=== PATIENT | female | born 1975 | race Caucasian/White ===

== ENCOUNTER 2018-02-08 07:27 | Inpatient (IN) | payer BC ==
--- NOTE | 2018-01-21 10:53 | HP ---
AMENDED REPORT NOW INCLUDES COSIGNER DESIGNATION CC: Bhavani Rae MD; Channing Mills MD; Jp Tsai MD * ADMISSION HISTORY AND PHYSICAL: DATE OF ADMISSION: 02/08/18 DATE OF HISTORY AND PHYSICAL: 01/17/18 ATTENDING SURGEON: Uma Singh MD* (GLORIA Jerome, dictating). CHIEF COMPLAINT: Right breast cancer. HISTORY OF PRESENT ILLNESS: This is a generally healthy 42-year-old female who recently had a sense that she might have breast cancer. Her only symptom was some discomfort in both axillae, which has since subsided. She had not noticed any change in either breast. She proceeded to have a mammogram and ultrasound both done at the [facility] in [place] on 01/07/18. Her last mammogram was apparently 2 years prior. There were some architectural changes in the right breast on the mammogram that prompted an ultrasound, which showed a hypoechoic mass in the 2 o'clock position of the right breast measuring up to 1.3 cm. A biopsy was performed that day showing invasive ductal carcinoma, which was ER and MO positive and HER-2/stefany receptor negative. The patient had had a prior biopsy of the right breast for benign disease in 1999. Her family history is notable for her mother having been treated for breast cancer at age 48. She is still alive and well. The patient also has a paternal grandmother diagnosed with breast cancer at around age 75. No additional family history known of breast, ovarian, colon, or pancreatic cancers. The patient was seen in the office by Dr. Singh on 01/10/18, at which time her studies were reviewed and she was examined. 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 No masses in the left breast. Skin and nipples otherwise normal. No palpable cervical, supraclavicular, or axillary lymphadenopathy. Also of note, the patient states that she did undergo an MRI through the [facility] and that study showed no additional lesions and no apparent lymph node involvement. I do not have the results of that study immediately available. The patient has had blood work drawn for genetic markers, which is still pending. Dr. Singh has reviewed with her the indications for surgery, the risks, benefits, and alternatives and I have described to her the expected perioperative course. She has not yet met with Dr. Mills, though is interested in reconstruction. She also has a pending appointment with Dr. Rae on 01/21/18. Per her scheduled booking, she is scheduled for bilateral mastectomies with right sentinel lymph node biopsy. However, I believe at this point she is considering an alternate procedure based on pending genetic testing as well as pending consultations with [facility] and [facility]. PAST MEDICAL HISTORY: ADHD. No other significant active medical problems. She does have some insomnia. PAST SURGICAL HISTORY: Previous surgeries include x2 and abdominoplasty. CURRENT MEDICATIONS: 1. Methylphenidate extended release 36 mg q.a.m. 2. Methylphenidate 5 mg q.p.m. She also takes the following supplements: 1. Vitamin D. 2. Probiotic. 3. Fish oil. 4. Melatonin 10 mg q.h.s. DRUG ALLERGIES: SULFA (blistering). FAMILY HISTORY: Negative for anesthesia problems, bleeding or clotting disorders. SOCIAL HISTORY: The patient is and has 3 children. 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 She denies use of tobacco. Drinks on average 1 alcoholic drink per day and denies any other recreational drug use. REVIEW OF SYSTEMS: General: No recent constitutional symptoms or acute illnesses. Weight has been stable. HEENT: No problems reported. Cardiovascular: No chest pain, palpitations, history of heart murmur. Respiratory: No history of asthma, chronic cough, or shortness of breath. GI: No problems reported. : No problems reported. 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 Her last pelvic exam and Pap smear were approximately 8 years ago. 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 I encouraged her to see if that could be rescheduled for a time prior to her surgery on 02/08/18. Endocrine: No diabetes or thyroid dysfunction. Remainder of review of systems is negative. PHYSICAL EXAMINATION GENERAL: Well-nourished, well-developed female, in no acute distress. VITAL SIGNS: Height 5 feet 8 inches, weight 160 pounds. Blood pressure 118/78 , pulse 90, respirations 18. HEENT: Pupils are equal and round, reactive. EOMs intact. No conjunctival pallor. Oropharynx: Mucous membranes are moist. Teeth in good repair. No intraoral lesions. NECK: No lymphadenopathy in the cervical or supraclavicular regions. No palpable thyromegaly or masses. LUNGS: Clear to auscultation. No wheezes. HEART: Regular rate and rhythm. No murmur noted. BREASTS: As per Dr. Singh's exam, not repeated today. No axillary lymphadenopathy per Dr. Singh's exam. ABDOMEN: Soft, nontender to palpation. No palpable masses or organomegaly. There is a well-healed low transverse incision from prior abdominoplasty and the umbilicus was re-sited as part of that procedure. GENITALIA: Not done. RECTAL: Not done. BACK: No spinous process or CVA tenderness. EXTREMITIES: No edema. NEUROLOGICAL: Grossly intact. SKIN: Warm and dry. No suspicious rashes or lesions noted. IMPRESSION: Right breast cancer. PLAN: Bilateral mastectomies with right sentinel lymph node biopsy. GLORIA JEROME [id number]/[facility] #: [id number] Addendum: After discussion with Dr. Rae, she will have bilateral mastectomies and bilateral sentinel lymph node biopsies. ANDRADE
[~2018-02-08 07:27] MED LIST: Buffered Lidocaine 0.9% SYRIN* 5 ML/SYR SYRINGE INTRADERM ONE
--- OUTSIDE RECORDS SUMMARY | 2018-02-08 07:31 | XMS REPORT ---
:1975 External Reference #:[id number] Author Organization [facility] Address [address] [place] [address] Phone [phone] Care Team Providers Name Role Phone Jp Tsai MD Care Team Information Md Physician Dermatologist Unavailable Jp Tsai MD Primary Care Physician Unavailable Payers Type Date Identification Numbers Payment Provider Subscriber Commercial Policy Number: [id number] BC/BS Of [employer] Name: BC/BS [address] [address] PayID: [id number] [place] [address] Problems Date Description Provider Status Onset: 12/06/2006 Attention deficit hyperactivity Jp Tsai M.D. Active disorder Onset: 08/29/2017 Candidal vulvovaginitis Heath Romero M.D. Active Family History Date Family Member(s) Problem(s) Comments General father, sisters - attention-deficit/hyperactivity disorder; mother, grandmothers - breast cancer Mother Breast Cancer Number of Children 3; set of twins born 01/14/09; infant born 04/03/10 Social History Type Date Description Comments Occupation [employer] Cigarette Use Nonsmoker Smoking Patient has never smoked Daily Caffeine Consumes on average 1 cup of coffee per day Exercise Type/Frequency Does not exercise currently Current Allergies, Adverse Reactions, Alerts Date Description Reaction Status Severity Comments 12/13/2000 Sulfa Drugs active Medications Medication Date Status Form Strength Qnty SIG Indications Ordering Provider Vivotif 10/31 Active Capsules 4caps take one Z23 Vonda DR tablet by Hermes, mouth every [employer] other day for a total of 4 doses Atovaquone-Progu 10/31 Active Tablets 62.5-25mg 20tab take one Z23 Vonda Gamez nikhil HCL s tablet daily Hermes, 2 days [employer] before trip, for duration of trip and for 7 days after return Methylphenidate 07/08 Active Tablets 5mg 90tab 1 tab once a s day as Marybeth, directed [employer] code b Concerta 07/08 Active Tablets 36mg 90tab 1 by mouth F90.1 ER s once a day Marybeth, in the [facility] morning code b Diflucan 08/29 Hx Tablets 150mg 2tabs 1 by mouth Heath JYobani /2017 times 1 day, Nick, - august repeat M.D. 10/31 in 5- Fluconazole 07/17 Hx Tablets 150mg 1tabs 1 by mouth x 1 Bette, - Afnp-C 07/18 Amoxicillin 05/23 Hx Capsules 500mg 20cap 1 by mouth J02.9 s twice a day Marybeth, - x 10d [employer] 07/17 Fluconazole 07/10 Hx Tablets 150mg 2tabs take 1 tab today, august Marybeth, - repeat in 5 [employer] 07/17 to 7 days Nystatin-Triamci 07/10 Hx Cream 311373-7. 30gm aply to B37.3 Tamia 1Unit/GM- affected Marybeth, - % area 3 to 4 [employer] 07/17 times a day /2017 until clear Metronidazole 07/10 Hx Gel 0.75% 45gm 1 N76.0 applicatorfu Marybeth, - l at hs for [employer] 07/17 5 Malarone 10/11 Hx Tablets 250-100mg 30tab 1 by mouth Z71Page Smith s once a day Lindsey, - start 2 days [employer] 07/10 prior to travel, continue 2 days following return Vivotif 10/11 Hx Capsules 4caps [address] hines daily Lindsey, - on alternate [employer] (1,3,5,7); course to be completed one week prior to travel/expos ure Ciprofloxacin 02/11 Hx Tablets 250mg 6tabs 1 po bid Jp Thomas. Franklin Tsai M.D. 04/07 Azithromycin 08/20 Hx Tablets 250mg 6tabs take 2 786.2 Sarah tablets by Lindsey, - mouth today [employer] 02/11 then take tablet daily for next 4 days Azithromycin 01/05 Hx Tablets 250mg 6tabs take 2 786.2 Tamia tablets by Marybeth, - mouth today [employer] 06/12 then take tablet daily for next 4 days Robitussin A-C 12/21 Hx 5Floz 1-2 tsp Heath J. q4hrs prn Franklin Romero cough M.DYobani 01/05 Cipro 05/31 Hx Tablets 250mg 6tabs 1 po bid Jp A. Farnklin Tsai M.D. 06/03 Amoxicillin 04/28 Hx Tablets 500mg 30tab 1 tid x 10 381.01 s days Riki - Shobha-C 05/08 Triamcinalone 05/16 Hx 0.5% 30gm apply to Quiros A. Acetonide affected Yi, - area bid-tid M.DYobani 04/28 prn Note 03/10 Hx patient Jp A needs to be Quin, - out of work M.D. 04/28 until 05/07 Bactroban 12/21 Hx Cream 2% 20gm apply to Margaret /2008 affected [facility], - area bid x Afnp-C 12/31 10 days Triamcinalone 12/21 Hx 0.5% 30gm apply to Margaret Acetonide /2008 affected [facility], - area bid-tid Afnp-C 03/10 prn /2008 Doxycycline 02/20 Hx Capsules 100mg 14cap 1 po bid Heath JYobani s Franklin Romero M.D. 11/27 Clindamycin 02/20 Hx Capsules 300mg 42cap 1 po tid x Jp A. s 10 days Franklin Tsai M.D. 03/06 Mentax 09/20 Hx Cream 1% 30g Apply Once 110.9 Daily X 2 Riki - WKS Only Afnp-C 12/06 Nizoral 09/07 Hx Cream 2% 30uni Use bid Heath Brown Franklin Carmen M.D. 12/06 Diflucan 09/07 Hx Tablets 100mg 5tabs 1 PO Q.D. Heath Brown Franklin Romero M.D. 12/06 Keflex 07/06 Hx Capsules 500mg 20cap 1 PO bid Khalif TYobani /2005 s Franklin Carty M.D. 10/11 Strattera 11/23 Hx Capsules 60mg Samp 1 po qhs Jp AYobani /2004 Franklin Tsai M.D. 07/06 Focalin 01/29 Hx 2.5mg 60uni 1 bid Jp AYobani Franklin Montemayor M.D. 05/25 Note 01/20 Hx CBC, Jp A. /2001 Chem-12, Quin, - TSH/T4, Ebv M.DYobani 01/21 Titers, Esr, /2001 CRP - DX 780.7 Concerta 02/22 Hx 18mg 90uni [address] [facility], - Afnp-C 12/21 ninety--cod e b Concerta 12/13 Hx 36mg 30uni 1 qam Jp AYobani Franklin Montemayor M.D. 02/05 Ritalin 12/13 Hx 5mg 90uni 1 PO Jp A. Sandra Tsai - as Directed M.DYobani 01/29 Methylphenidate 02/24 Hx 10mg 24uni 2 Tabs Am; Sherry ts One Tab AT [facility], - Noon; One Afnp-C 12/13 Tab Concerta Hx 36mg 90uni 1 by mouth F90.1 Jp A. /0000 ts every Quin, - morning code M.D. 07/08 Methylphenidate Hx 5mg 180un 1 tab twice F90.1 Jp A. /0000 its a day as Quin - directed M.DYobani 07/08 code Hx Capsules Unknown /0000 - 11/16 Ortho Tri-Cyclen Hx Tablets 0.18/0.21 1 po qd Unknown Lo /0000 5/0.25 - mg-25 mcg 07/17 Immunizations CPT Code Status Date Vaccine Lot # [id number] Given 10/12/2015 Hep A Adlt Immunization [id number] Given 04/07/2013 Tdap Tetanus, W Pertussis [id number] Given 04/07/2013 Preservative free flu 3 yrs+ and older [id number] Given 02/12/2008 DO Not Use Split Influenza Virus Vaccine [id number] 36014 Given 03/15/2005 DO Not Use Split Influenza Virus Vaccine [id number] Given 12/06/2000 MMR Virus Immunization Vital Signs Date Vital Result Comment 01/21/2018 BP Systolic 124 mmHg BP Diastolic 68 mmHg Heart Rate 80 /min Body Temperature 100.3 F Respiratory Rate 16 /min Height 67.5 inches 5'7.50" Weight 165.38 lb BMI (Body Mass Index) 25.5 kg/m2 10/31/2017 BP Systolic 96 mmHg BP Diastolic 54 mmHg Heart Rate 60 /min Body Temperature 97.4 F Respiratory Rate 16 /min Height 67.5 inches 5'7.50" Weight 164.38 lb BMI (Body Mass Index) 25.4 kg/m2 08/29/2017 BP Systolic 108 mmHg BP Diastolic 72 mmHg Heart Rate 88 /min Body Temperature 99.1 F Respiratory Rate 16 /min Height 67.5 inches 5'7.50" Weight 164.50 lb BMI (Body Mass Index) 25.4 kg/m2 07/17/2017 BP Systolic 110 mmHg BP Diastolic 60 mmHg Heart Rate 72 /min Body Temperature 99.7 F Respiratory Rate 16 /min Height 67.5 inches 5'7.50" Weight 166.00 lb BMI (Body Mass Index) 25.6 kg/m2 05/23/2017 BP Systolic 104 mmHg BP Diastolic 70 mmHg Heart Rate 80 /min Body Temperature 98.7 F Respiratory Rate 16 /min Height 67.5 inches 5'7.50" Weight 163.00 lb BMI (Body Mass Index) 25.1 kg/m2 07/10/2016 BP Systolic 110 mmHg BP Diastolic 80 mmHg Heart Rate 60 /min Body Temperature 98.8 F Respiratory Rate 18 /min Height 67.5 inches 5'7.50" Weight 168.00 lb BMI (Body Mass Index) 25.9 kg/m2 10/12/2015 BP Systolic 110 mmHg BP Diastolic 70 mmHg Heart Rate 68 /min Body Temperature 98.6 F Respiratory Rate 16 /min Height 67.5 inches 5'7.50" Weight 157.00 lb BMI (Body Mass Index) 24.2 kg/m2 03/31/2015 BP Systolic 110 mmHg BP Diastolic 72 mmHg Heart Rate 68 /min Body Temperature 98.4 F Respiratory Rate 16 /min Height 67.5 inches 5'7.50" Weight 165.00 lb BMI (Body Mass Index) 25.5 kg/m2 05/25/2014 BP Systolic 112 mmHg BP Diastolic 74 mmHg Heart Rate 64 /min Body Temperature 98.2 F Respiratory Rate 16 /min Height 67.5 inches 5'7.50" Weight 163.00 lb BMI (Body Mass Index) 25.1 kg/m2 09/10/2013 BP Systolic 110 mmHg BP Diastolic 70 mmHg Heart Rate 64 /min Body Temperature 98.6 F Respiratory Rate 16 /min Height 67.5 inches 5'7.50" Weight 154.00 lb BMI (Body Mass Index) 23.8 kg/m2 04/07/2013 BP Systolic 120 mmHg BP Diastolic 70 mmHg Heart Rate 72 /min Body Temperature 98.1 F Respiratory Rate 16 /min Height 67.5 inches 5'7.50" Weight 158.00 lb BMI (Body Mass Index) 24.4 kg/m2 08/14/2012 BP Systolic 100 mmHg BP Diastolic 76 mmHg Heart Rate 66 /min Body Temperature 96.4 F Height 67.5 inches 5'7.50" Weight 151.12 lb BMI (Body Mass Index) 23.3 kg/m2 06/12/2012 BP Systolic 120 mmHg BP Diastolic 60 mmHg Heart Rate 56 /min Body Temperature 97.5 F Respiratory Rate 14 /min Height 67.5 inches 5'7.50" Weight 151.25 lb BMI (Body Mass Index) 23.3 kg/m2 01/06/2012 BP Systolic 110 mmHg BP Diastolic 78 mmHg Heart Rate 66 /min Body Temperature 98.8 F Height 67.5 inches 5'7.50" Weight 140.00 lb BMI (Body Mass Index) 21.6 kg/m2 11/28/2011 BP Systolic 102 mmHg BP Diastolic 70 mmHg Heart Rate 72 /min Height 67.5 inches 5'7.50" Weight 138.00 lb BMI (Body Mass Index) 21.3 kg/m2 12/27/2010 BP Systolic 120 mmHg BP Diastolic 76 mmHg Heart Rate 72 /min Body Temperature 98.6 F Height 67.5 inches 5'7.50" Weight 176.00 lb BMI (Body Mass Index) 27.2 kg/m2 11/16/2010 BP Systolic 100 mmHg BP Diastolic 80 mmHg Heart Rate 80 /min Body Temperature 98.1 F Height 67.5 inches 5'7.50" Weight 177.00 lb BMI (Body Mass Index) 27.3 kg/m2 04/28/2010 BP Systolic 104 mmHg BP Diastolic 74 mmHg Heart Rate 72 /min Body Temperature 98.2 F Height 67.5 inches 5'7.50" Weight 190.00 lb BMI (Body Mass Index) 29.3 kg/m2 04/22/2009 BP Systolic 106 mmHg BP Diastolic 70 mmHg Heart Rate 72 /min Height 67.5 inches 5'7.50" Weight 175.00 lb BMI (Body Mass Index) 27.0 kg/m2 03/10/2009 BP Systolic 108 mmHg BP Diastolic 72 mmHg Heart Rate 64 /min Body Temperature 98.0 F Respiratory Rate 16 /min Height 67.5 inches 5'7.50" Weight 182.00 lb BMI (Body Mass Index) 28.1 kg/m2 12/21/2008 BP Systolic 120 mmHg BP Diastolic 80 mmHg Body Temperature 98.7 F Height 67.5 inches 5'7.50" Weight 204.00 lb BMI (Body Mass Index) 31.5 kg/m2 02/12/2008 BP Systolic 100 mmHg BP Diastolic 60 mmHg Heart Rate 72 /min Height 67.5 inches 5'7.50" Weight 149.00 lb BMI (Body Mass Index) 23.0 kg/m2 07/17/2007 BP Systolic 98 mmHg BP Diastolic 60 mmHg Heart Rate 70 /min Respiratory Rate 12 /min Height 67.5 inches 5'7.50" Weight 144.00 lb BMI (Body Mass Index) 22.2 kg/m2 03/07/2007 Heart Rate 80 /min Body Temperature 98.3 F Respiratory Rate 18 /min Height 67.5 inches 5'7.50" Weight 155.00 lb BMI (Body Mass Index) 23.9 kg/m2 12/06/2006 BP Systolic 102 mmHg BP Diastolic 60 mmHg Heart Rate 60 /min Respiratory Rate 16 /min Height 67.5 inches 5'7.50" Weight 154.00 lb BMI (Body Mass Index) 23.8 kg/m2 09/20/2006 BP Systolic 120 mmHg BP Diastolic 72 mmHg Heart Rate 64 /min Body Temperature 97.6 F Height 67.5 inches 5'7.50" Weight 150.00 lb BMI (Body Mass Index) 23.1 kg/m2 09/07/2006 BP Systolic 130 mmHg BP Diastolic 80 mmHg Heart Rate 68 /min Body Temperature 99.1 F Height 67.5 inches 5'7.50" Weight 151.00 lb BMI (Body Mass Index) 23.3 kg/m2 02/23/2006 BP Systolic 110 mmHg BP Diastolic 60 mmHg Heart Rate 66 /min Height 67.5 inches 5'7.50" Weight 154.00 lb BMI (Body Mass Index) 23.8 kg/m2 10/11/2005 BP Systolic 112 mmHg BP Diastolic 62 mmHg Heart Rate 68 /min Respiratory Rate 16 /min Height 67.5 inches 5'7.50" Weight 147.00 lb BMI (Body Mass Index) 22.7 kg/m2 07/06/2005 BP Systolic 104 mmHg BP Diastolic 60 mmHg Heart Rate 76 /min Body Temperature 97.9 F Height 67.5 inches 5'7.50" 11/23/2004 BP Systolic 112 mmHg BP Diastolic 60 mmHg Heart Rate 60 /min Respiratory Rate 16 /min Height 67.5 inches 5'7.50" Weight 143.00 lb BMI (Body Mass Index) 22.1 kg/m2 12/07/2003 BP Systolic 110 mmHg BP Diastolic 70 mmHg Heart Rate 72 /min Height 67.5 inches 5'7.50" Weight 143.00 lb BMI (Body Mass Index) 22.1 kg/m2 05/25/2003 BP Systolic 100 mmHg BP Diastolic 64 mmHg Heart Rate 68 /min Height 67.5 inches 5'7.50" Weight 146.00 lb BMI (Body Mass Index) 22.5 kg/m2 07/28/2002 BP Systolic 100 mmHg BP Diastolic 60 mmHg Heart Rate 60 /min Height 67.5 inches 5'7.50" Weight 154.00 lb BMI (Body Mass Index) 24.1 kg/m2 01/29/2002 BP Systolic 110 mmHg BP Diastolic 70 mmHg Heart Rate 74 /min Height 67.5 inches 5'7.50" Weight 154.00 lb BMI (Body Mass Index) 24.1 kg/m2 07/05/2001 BP Systolic 114 mmHg BP Diastolic 70 mmHg Heart Rate 72 /min Height 67.5 inches 5'7.50" Weight 149.00 lb BMI (Body Mass Index) 23.3 kg/m2 12/13/2000 BP Systolic 104 mmHg BP Diastolic 64 mmHg Height 67.5 inches 5'7.50" Weight 150.00 lb BMI (Body Mass Index) 23.5 kg/m2 03/06/2000 BP Systolic 100 mmHg BP Diastolic 60 mmHg Heart Rate 92 /min Height 67.5 inches 5'7.50" Weight 145.00 lb BMI (Body Mass Index) 22.7 kg/m2 01/13/1999 BP Systolic 106 mmHg BP Diastolic 66 mmHg Height 67.5 inches 5'7.50" Weight 140.00 lb Results Test Date Test Result H/L Range Note CBC Auto Diff 01/17/2018 White Blood Count 9.8 10^3/uL 3.5-10.8 Red Blood Count 4.41 10^6/uL 4.00-5.40 Hemoglobin 13.0 g/dL 12.0-16.0 Hematocrit 39 % 35-47 Mean Corpuscular Volume 87 fL 80-97 Mean Corpuscular Hemoglobin 30 pg 27-31 Mean Corpuscular HGB Conc 34 g/dL 31-36 Red Cell Distribution Width 13 % 10.5-15 Platelet Count 287 10^3/uL 150-450 Mean Platelet Volume 7.7 um3 7.4-10.4 Abs Neutrophils 6.5 10^3/uL 1.5-7.7 Abs Lymphocytes 2.5 10^3/uL 1.0-4.8 Abs Monocytes 0.5 10^3/uL 0-0.8 Abs Eosinophils 0.2 10^3/uL 0-0.6 Abs Basophils 0.1 10^3/uL 0-0.2 Abs Nucleated RBC 0 10^3/uL Granulocyte % 66.7 % 38-83 Lymphocyte % 25.8 % 25-47 Monocyte % 5.1 % 0-7 Eosinophil % 1.6 % 0-6 Basophil % 0.8 % 0-2 Nucleated Red Blood Cells % 0 Basic Metabolic Panel 01/17/2018 Sodium 138 mmol/L 135-145 Potassium 3.6 mmol/L 3.5-5.0 Chloride 106 mmol/L 101-111 Co2 Carbon Dioxide 25 mmol/L 22-32 Anion Gap 7 mmol/L 2-11 Glucose 94 mg/dL 70-100 Blood Urea Nitrogen 13 mg/dL 6-24 Creatinine 0.81 mg/dL 0.51-0.95 BUN/Creatinine Ratio 16.0 8-20 Calcium 9.0 mg/dL 8.6-10.3 Egfr Non- 76.8 >60 Egfr 92.9 >60 1 Type & Screen 01/17/2018 Patient Blood Type O Positive Antibody Screen NEGATIVE Laboratory test finding 08/29/2017 Quickstrep negative Negative CBC Electronic (Fma New) 08/29/2017 WBC 8.63 4.0-10.0 RBC 4.16 3.93-6.0 Hemoglobin (Fma/CMC/CTX) 12.6 g/dL 12.0-17.0 Hematocrit (Fma/CMC/CTX) 35.7 % 35.0-50.0 Mean Corpuscular Vol 85.8 fL 80-95 Mean Corpuscular Hemoglobin 30.3 pg 25.6-32.2 Mean Corpuscular Hemo Concen 35.3 g/dL 32.2-36.0 Platelets 255 10^3/ul 163-400 RDW-CV 13.1 11.6-14.4 Mean Platelet Volume 9.2 fL Low 9.4-12.4 Absolute Neutrophils BLD 6.80 High 1.56-6.13 Absolute Lymphocytes 1.15 Low 1.18-3.74 Absolute Monocytes BLD Auto 0.45 0.24-0.82 Absolute Eos Blood 0.19 0.04-0.54 Absolute Basophils 0.03 0.01-0.08 Neutrophil % 78.9 High 34.0-70.0 Lymph% 13.3 % Low 20.0-52.0 Monocytes % 5.2 % 5.0-12.0 Eos % 2.2 % 0.7-7.0 Basophil% 0.3 % 0.1-1.2 Comprehensive Metabolic Prof 08/29/2017 Sodium 135 mEq/L 134-149 Potassium 3.7 mEq/L 3.6-5.5 Chloride 96 mEq/L 94-112 Carbon Dioxide 23 mEq/L 21-32 Glucose 99 mg/dL 70-105 BUN 13 mg/dL 6-26 Creatinine 0.8 mg/dL 0.6-1.4 BUN/Creat Ratio 16.3 CALC 8.0-36.0 Calcium 8.7 mg/dL 8.6-10.2 Total Protein 6.9 g/dL 6.4-8.3 Albumin 4.5 g/dL 3.8-5.5 Globulin 2.4 g/dL 2.0-4.8 A/G Ratio 1.9 CALC 0.6-2.3 Alk. Phosphatase 57 U/L 30-110 Alt (SGPT) 21 U/L 7-35 Ast (Sgot) 19 U/L 5-34 Total Bilirubin 0.5 mg/dL 0.2-1.3 GFR Non- >60 ml/min/1.73m^ >=60 GFR >60 ml/min/1.73m^ >=60 Laboratory test finding 07/17/2017 Wet Prep (Fma,CMC,CX) SEE COMMENTS 2 Laboratory test finding 08/14/2012 Quickstrep NEG Negative Throat - Beta Strep Fma NEG@48HRS CBC Auto Diff 09/29/2011 White Blood Count 6.3 CUMM 4.8-10.8 3 Red Cell Count 4.09 CUMM Low 4.2-5.4 3 Hemoglobin 12.2 g/dL 12.0-16.0 3 Hematocrit 36 % 35-47 3 Mean Corpuscular Volume 87 um3 79-97 3 Mean Corpuscular Hemoglob 30 pg 27-31 3 Mean Corpuscular HGB Cone 34 g/dL 32-36 3 Redcell Distribution WDTH 14 % 10.5-15 3 Platelet Count 207 CUMM 150-450 3 Mean Platelet Volume 10.3 um3 7.4-10.4 3 Gran % 55.0 % 38-83 3 Lymph % 36.9 % 25-47 3 Mononuclear % 5.5 % 1-9 3 Eosinophil % 2.2 % 0-6 3 Basophil % 0.4 % 0-2 3 Abs Lymphs 2.3 1.0-4.8 3 Abs Mononuclear 0.3 0-0.8 3 Absolute Neutrophil Count 3.5 1.5-7.7 3 Abs Eosinophils 0.1 0-0.6 3 Abs Basophils 0 0-0.2 3 Type And Screen 09/29/2011 Patient Blood Type O POSITIVE 3 Antibody Screen NEGATIVE 3 Specimen Discard Date 10/13/11 3, 4 Wound Culture 12/27/2010 .Gram Stain Additional NO EPI, NO WBC, <SEE NOTE> 5 Wound Culture Staphylococcus a <SEE NOTE> 6 Laboratory test finding 04/28/2010 TSH 0.82 mIU/L 0.50-6.00 Free T4 0.84 ng/dL 0.75-1.54 Creatinine 24HR Urine 03/31/2010 Creatinine Random Urine 100.34 mg/dL Urine Creatinine/24HR 1204.08 MG/24HR 600-1800 Hours Of Collection 24 HR 24- Urine Volume Measurement 1200 ML Total Protein 24HR Ur OB Pat 03/31/[address] Urine OB Pat 16 mg/ dL Urine Total Protein/24HR 192 MG/24HR High 0-165 Urinalysis W/Microscopic 03/30/2010 Ua Color YELLOW Yellow Appearance-Urine CLEAR Clear Specific [place]-Ur 1.014 1.010-1.030 Esterase-Urine NEGATIVE Negative Nitrite NEGATIVE Negative [id number] NEGATIVE Negative Protein-Urine NEGATIVE Negative PH-Urine 7.0 5-9 Blood-Urine NEGATIVE Negative Ketones-Urine NEGATIVE Negative Bilirubin-Ur NEGATIVE Negative Glucose-Urine 1+ Negative WBC-Urine 0-2 0-5 RBC-Urine 0-2 0-2 Epith Cells-Ur MANY None Bacteria-Urine 1+ None Laboratory test finding 03/30/2010 Uric Acid 3.7 mg/dL 2.6-7.2 CBC With Electronic Diff 03/30/2010 White Blood Count 8.6 CUMM 4.8-10.8 Red Cell Count 3.82 CUMM Low 4.2-5.4 Hemoglobin 11.8 g/dL Low 12.0-16.0 Hematocrit 35 % 35-47 Mean Corpuscular Volume 91 um3 79-97 Mean Corpuscular Hemoglob 31 pg 27-31 Mean Corpuscular HGB Cone 34 g/dL 32-36 Redcell Distribution WDTH 15 % 10.5-15 Platelet Count 199 CUMM 150-450 Mean Platelet Volume 7.9 um3 7.4-10.4 Gran % 72.6 % 38-83 Lymph % 19.2 % Low 25-47 Mononuclear % 6.7 % 1-9 Eosinophil % 1.2 % 0-6 Basophil % 0.3 % 0-2 Abs Lymphs 1.6 1.0-4.8 Abs Mononuclear 0.6 0-0.8 Absolute Neutrophil Count 6.2 1.5-7.7 Abs Eosinophils 0.1 0-0.6 Abs Basophils 0 0-0.2 7 Comprehensive Metabolic Prof 08/03/2009 Albumin 4.6 g/dL 3.8-5.5 Alk. Phos. 52 U/L 30-110 Alt (SGPT) 22 U/L 7-35 Ast (Sgot) 17 U/L 5-34 BUN 19 mg/dL 6-26 Calcium 9.2 mg/dL 8.6-10.2 Chloride 103 mEq/L 94-112 Creatinine 0.7 mg/dL 0.6-1.4 Carbon Dioxide 22 mEq/L 21-32 Glucose 95 mg/dL 70-105 Sodium 139 mEq/L 134-149 Total Bilirubin 0.3 mg/dL 0.2-1.3 Total Protein 7.0 g/dL 6.3-8.1 Potassium 3.6 mEq/L 3.6-5.5 Globulin 2.5 g/dL 2.0-4.8 A/G Ratio 1.8 Calc 0.6-2.2 BUN/Creat Ratio 26.2 Calc 8.0-36.0 Laboratory test finding 08/03/2009 TSH 1.79 mIU/L 0.50-6.00 Free T4 1.04 ng/dL 0.75-1.54 CBC (a) 08/03/2009 WBC 8.9 3.6-9.6 RBC 4.51 3.90-5.70 Hemoglobin (Fma/CMC/CTX) 13.4 g/dL 12.1 - 17.2 Hematocrit (Fma/CMC/CTX) 39.9 % 36.1 - 50.3 Mean Corpuscular Vol 88.5 82.2-97.4 Mean Corpuscular Hemaglobin 29.7 27.6-33.3 Mean Corpuscular Hemo Concen 33.6 33.0-36.0 Platelets 274 10^3/ul 150-400 Lymph% 31.8 20.5-51.1 Mixed% 7.6 Neutrophils % 60.6 RDW 14.0 High 11.6-13.7 Mean Platelet Volume 10.3 7.4-10.4 Hepatic 04/22/2009 Albumin 4.5 g/dL 3.8-5.5 Alk. Phos. 67 U/L 30-110 Alt (SGPT) 43 U/L High 7-35 8 Ast (Sgot) 27 U/L 5-34 Total Bilirubin 0.5 mg/dL 0.2-1.3 Total Protein 7.3 g/dL 6.3-8.1 Direct Bilirubin 0.3 mg/dL 0.0-0.6 Globulin 2.7 g/dL 2.0-4.8 A/G Ratio 1.7 Calc 0.6-2.2 Indirect Bilirubin 0.21 0.10-1.00 Ua - Micro (Fma) 03/10/2009 Appearance clear Color yellow Glucose - Bilirubin - Ketones - SP Grav 1.025 Blood trace PH 5.0 Protein - Urobil 0.2 Nitrite - Leukocytes (Fma/CMC/Centrex) small Hyaline - /Lpf Granular - /Lpf WBC (Fma,Centrex) 5-10 RBC 2-3 Mucus - /Lpf Epith occ /Lpf Bacteria trace /Hpf Amorphous slight /Lpf Crystals, Fluid (Fma/CMC/CTX) - Z#Comments - Laboratory test finding 03/10/2009 TSH 1.13 mIU/L 0.50-6.00 Free T4 0.85 ng/dL 0.75-1.54 Comprehensive Metabolic Prof 03/10/2009 Glucose 93 mg/dL 70-105 BUN 18 mg/dL 6-26 Creatinine 0.9 mg/dL 0.6-1.4 Sodium 138 mEq/L 134-149 Potassium 3.8 mEq/L 3.6-5.5 Chloride 105 mEq/L 94-112 Carbon Dioxide 21 mEq/L 21-32 Albumin 4.6 g/dL 3.8-5.5 Total Protein 7.0 g/dL 6.3-8.1 Calcium 9.6 mg/dL 8.6-10.2 Alk. Phos. 72 U/L 30-110 Ast (Sgot) 58 U/L High 5-34 Alt (SGPT) 91 U/L High 7-35 Total Bilirubin 0.6 mg/dL 0.2-1.3 Globulin 2.5 g/dL 2.0-4.8 A/G Ratio 1.9 Calc 0.6-2.2 BUN/Creat Ratio 19.1 Calc 8.0-36.0 Lipid Profile 03/10/2009 Cholesterol 204 mg/dL High 120-200 HDL 49 mg/dL 30-85 Triglycerides 89 mg/dL 30-200 HDL Risk Factor 4.1 CALC Low 4.2-7.0 LDL (Calculated) 137 CALC High 0-129 VLDL (Calculated) 18 mg/dL 0-50 Urine Culture Sensitivity 03/10/2009 Urine Culture ESCHERICHIA COLI 9 Sensitivi Wound Culture 03/07/2007 Wound Culture No growth. Gram Stain Additional RARE EPI, NO WBC <SEE NOTE> 10 Gram Positive Sensitivity 02/20/2007 Clindamycin <=0.25 Ciprofloxacin >=8 Erythromycin >=8 Gentamicin <=0.5 Levofloxacin 4 Linezolid 2 Oxacillin >=4 Rifampin <=0.5 Trimeth-Sulfa <=10 Tetracycline <=1 Vancomycin <=1 Culture And 02/18/2007 Culture MANY [METH See Image 11, 12 Sensitivity Sensitivity RESIS <SEE Report NOTE> Laboratory test 10/02/2006 Glucose, Serum 84 mg/dL 70-105 finding (Fma/CMC/CTX) Comp Metabolic 01/20/2002 Sodium 138 mmol/L 135-145 (CMC) Potassium 3.9 3.5-5.0 Chloride 105 mmol/L 101-111 Co2 27.0 22-32 Glucose 67 mg/dL Low 70-105 BUN 12 6-24 Creatinine 1.0 mg/dL 0.5-1.4 BUN/Creatinin Ratio 12.0 8-20 Calcium 9.6 mg/dL 8.7-10.2 Total Protein 7.0 GM/DL 6.2-8.1 Albumin 4.2 3.6-5.4 Globulin 2.8 2-4 Albumin / Globulin Ratio 1.5 1-3 Bilirubin, Total 0.9 mg/dL 0.4-1.5 Alkaline Phosphatase 50 U/L 30-110 Alt (SGPT) 17 14-54 Ast (Sgot) 19 12-42 Laboratory test finding 01/20/2002 Thyroxine, Total (T4) 7.7 g/dL 5-12 TSH 0.75 0.34-5.60 C React Protein <0.5 mg/dL <0.5 Comments JOSEFA [place] See Image Report 1 Because ethnic data is not always readily available, this report includes an eGFR for both -Americans and non- Americans. The National Kidney Disease Education Program (NKDEP) does not endorse the use of the MDRD equation for patients that are not between the ages of 18 and 70, are , have extremes of body size, muscle mass, or nutritional status, or are non- or non-. According to the National Kidney Foundation, irrespective of diagnosis, the stage of the disease is based on the level of kidney function: Stage Description GFR(mL/min/1.73 m(2)) 1 Kidney damage with normal or decreased GFR 90 2 Kidney damage with mild decrease in GFR 60-89 3 Moderate decrease in GFR 30-59 4 Severe decrease in GFR 15-29 5 Kidney failure <15 (or dialysis) 2 wet prep : epis , no wbc,no yeast neg whiff 3 SURGERY DATE 10/23/11 4 PREADMISSION TESTING SAMPLES FOR BLOOD BANK WILL BE HELD FOR 14 DAYS FROM THE DATE OF COLLECTION *IF* THE FOLLOWING CRITERIA ARE MET: 1) THE PATIENT HAS *NOT* BEEN IN THE LAST 3 MONTHS. 2) THE PATIENT HAS *NOT* BEEN TRANSFUSED IN THE LAST 3 MONTHS. PREADMISSION TESTING SAMPLES WILL *NOT* BE HELD FOR 14 DAYS FROM PATIENTS WHO IN THE LAST 3 MONTHS: 1) HAVE BEEN 2) HAVE BEEN TRANSFUSED THESE PATIENTS *MUST* BE COLLECTED WITHIN 3 DAYS OF THE SURGERY DATE. 5 NO EPI, NO WBC, RARE GRAM POS COCCI, 6 Staphylococcus aureus Predominating WOUND CULTURE organism 1 Staphylococcus aureus Predominating Quinupristin/Dalfopristin <=0.25 Susceptible Moxifloxacin <=0.25 Susceptible Clindamycin <=0.25 Resistant Erythromycin >=8 Resistant Gentamicin <=0.5 Susceptible Levofloxacin <=0.12 Susceptible Oxacillin <=0.25 Susceptible Penicillin-G >=0.5 Resistant Tetracycline <=1 Susceptible Trimethoprim/Sulfa <=10 Susceptible Vancomycin <=0.5 Susceptible 7 Lymphopenia % 8 RESULT ELZBIETA'D 9 10^1-10,000 ORGANISMS/ML (FEW)^CCU NORMAL ELIJAH 25^10-25,000 ORGANISMS/ML (MODERATE)^CCU 10 RARE EPI, NO WBC, NO ORGANISMS SEEN 11 VERBAL TO LYNDSAY/KAUSHIK/UC BY [facility] at 1010 on 02/20/07. Results read back accurately. 12 MANY [METH RESIST S. AUREUS (MRSA)] METH RESIST S. AUREUS (MRSA) Procedures Date CPT Code Description Status Comment 01/07/2018 Mammogram Completed strong family history of breast cancer - 01/07/18 Right breast cancer 10/14/2014 Mammogram Completed 03/24/2009 Mammogram Completed Encounters Type Date Location Provider CPT E/M Dx Office Visit 10/31/2017 8:00a [place] [address] F90.1 Z23 Office Visit 08/29/2017 2:20p Main Office Heath Romero M.D. 53237 B37.3 J02.9 Office Visit 07/17/2017 4:30p [facility] Shobha Del Valle-Johnny 08129 N76.0 Office Visit 05/23/2017 3:30p Main Office DAYANARA Colon 83525 J02.9 Office Visit 07/10/2016 6:30p Main Office DAYANARA Colon 03975 N76.0 B37.3 Office Visit 10/12/2015 8:15a [facility] DAYANARA Roth 13918 Z71.89 Z23 Office Visit 03/31/2015 1:45p [facility] Shobha Mahoney-Johnny 05578 F90.1 Office Visit 05/25/2014 1:00p [facility] Jp Tsai M.D. 46615 314.01 Office Visit 09/10/2013 1:30p Main Office Shobha Del Valle-C 00136 727.67 Office Visit 04/07/2013 10:30a Main Office Shobha Del Valle-C 19219 314.01 V06.5 V04.81 Office Visit 08/14/2012 8:15a [place] [address] 462 Office Visit 06/12/2012 10:30a Main Office DAYANARA Roth 47437 780.4 314.01 Office Visit 01/06/2012 9:15a Main Office DAYANARA Colon 38654 786.2 Office Visit 11/28/2011 4:15p Main Office Shobha Mahoney-C 34273 314.01 Office Visit 12/27/2010 2:10p [facility] Heath Romero M.D. 31825 916.5 E906.4 Office Visit 11/16/2010 9:00a Main Office Shobha Mahoney-C 42938 314.01 728.84 Office Visit 04/28/2010 11:15a Main Office Shobha Mahoney-C 61805 381.01 648.11 Office Visit 04/22/2009 11:00a [facility] Shobha Mahoney-C 04124 314.01 790.6 Office Visit 03/10/2009 10:30a [facility] Jp Tsai M.D. 88980 V70.0 648.13 314.01 V77.91 V76.10 791.7 Office Visit 12/21/2008 9:45a Main Office Shobha Del Valle-C 80572 697.8 704.8 Office Visit 02/12/2008 6:00p Main Office Shobha Del Valle-C 46733 V04.81 314.01 Office Visit 07/17/2007 7:45p Main Office Buchanannp-C 31583 314.01 Office Visit 12/06/2006 3:40p Main Office Jp Tsai M.D. 78181 314.01 Office Visit 09/20/2006 6:15p Main Office Navarronp-C 56637 110.9 Office Visit 09/07/2006 4:00p Main Office Heath Romero M.D. 46627 110.9 Office Visit 02/23/2006 9:45a [facility] Shobha Mahoney-C 57449 314.01 V58.69 Office Visit 10/11/2005 11:30a [facility] Jp Tsai M.D. 94162 314.01 Office Visit 07/06/2005 2:10p [facility] Khalif Carty M.D. 72886 682.6 314.01 Office Visit 11/23/2004 9:10a [facility] Jp Tsai M.D. 76119 314.01 Office Visit 12/07/2003 10:50a [facility] Jp Tsai M.D. 62153 314.01 Office Visit 05/25/2003 1:10p Main Office Jp Tsai M.D. 63059 314.01 Office Visit 07/28/2002 4:00p Main Office Jp Tsai M.D. 28416 314.01 Office Visit 01/29/2002 3:20p Main Office Jp Tsai M.D. 16794 314.01 Office Visit 07/05/2001 11:20a [facility] Jp Tsai M.D. 75097 Office Visit 12/13/2000 4:00p Main Office Jp Tsai M.D. 39230 Office Visit 03/06/2000 6:00p Main Office Samy Mahoney 40011 Plan of Care Future Appointment(s):01/28/2018 11:00 am - Jp Tsai M.D. [place] [facility] Xselmw2501/21/2018 - Vonda Mirza, NPC50.911 Malignant neoplasm of unsp site of right female breastComments:going to have mastectomy in up:pre-op with MD QuinZ12.4 Encounter for screening for malignant neoplasm of cervixComments:I performed a pap smear, I will call you with abnormal results or send you a letter with normal results.Z23 Encounter for immunizationComments:Your flu vaccination has been administered. This protects you for the fall, winter and spring. It will decrease the likelihood that you will get the flu. If you are unlucky and get the flu, the symptoms will be less severe.AllComments:~B_~U_Medication Management~b_~u_ Patient Understands medications he 's taking? Yes No Are there Barriers to Adherence? Yes No Has the patient been asked about herbal supplements and therapies, and OTC meds? Yes No ~B_~U_Care Plan~b_~u_1. Patient has been queried about patient's goals/preferences and functional/lifestyle goals at relevant visits. If relevant, describe: na2. Treatment goals as explained to the patient: above3. Are there barriers to meeting treatment goals? Yes No If Yes, please describe:4. Self-Management goals as described to the patient:Yes NoAs always, we strongly encourage a healthy diet and making physical activity a part of your every day life. If you have questions about how or where to start, please contact the office.Follow up:Please schedule a full preventative well visit at your earliest convenience
--- OUTSIDE RECORDS SUMMARY | 2018-02-08 07:32 | XMS REPORT ---
:1975 External Reference #:[id number] Author Organization [employer] Address [address] [place] [address] [place] [address] Phone [phone] Care Team Providers Name Role Phone Jp Tsai MD Primary Care Physician Unavailable Payers Type Date Identification Numbers Payment Provider Subscriber Commercial Policy Number: [id number] [employer] Ember Mondragon PayID: [id number] [address] [address] [place] [address] Problems Description No Information Family History Date Family Member(s) Problem(s) Comments General Breast Cancer grandmother Father Glaucoma Mother Breast Cancer Social History Type Date Description Comments 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 Use Drinks 1 Alcoholic Beverage Per Day Smoking Patient has never smoked Daily Caffeine Consumes on average 1 cup of regular coffee per day Exercise Type/Frequency Does not exercise Allergies, Adverse Reactions, Alerts Date Description Reaction Status Severity Comments 01/10/2018 Sulfa Antibiotics active blistering Medications Medication Date Status Form Strength Qnty SIG Indications Ordering Provider Methylphenidate 00/ Active Tablets 5mg 1 tablet Unknown HCL 0000 by mouth as directed Concerta 0000/ Active Tablets ER 36mg 1 by mouth Unknown 0000 every in the morning Vitamin D 00/ Active Capsules 1 by mouth Unknown (Ergocalciferol) 0000 every day Probiotic Daily 00/00/ Active Capsules 1 by mouth Unknown 0000 every day Fish Oil 00/00/ Active Capsules 1000mg 1 by mouth Unknown 0000 once a day Melatonin 0000/ Active Capsules 10mg 1 tab by Unknown 0000 mouth at bedtime as needed for insomnia Vital Signs Date Vital Result Comment 01/17/2018 Height 68 inches 5'8" Weight 160.00 lb Heart Rate 90 /min BP Systolic Sitting 118 mmHg BP Diastolic Sitting 78 mmHg Respiratory Rate 18 /min Body Temperature 98.0 F BMI (Body Mass Index) 24.3 kg/m2 01/10/2018 Height 68 inches 5'8" Weight 160.00 lb Heart Rate 84 /min BP Systolic Sitting 98 mmHg BP Diastolic Sitting 64 mmHg Respiratory Rate 18 /min Body Temperature 98.2 F BMI (Body Mass Index) 24.3 kg/m2 Results Description No Information Procedures Date CPT Code Description Status 10/14/2014 Mammogram Completed Encounters Type Date Location Provider CPT E/M Dx Office Visit 01/10/2018 [place] [address] C50.211 3:30p [facility] Plan of Care Future Appointment(s):02/08/2018 12:00 pm - Herber Mercedes MD, FACS at [facility]02/08/2018 12:00 pm - Uma Sinhg MD at [facility]
[2018-02-08] MEDS ORDERED: Morphine VIAL* 10 MG/ML 1 ML VIAL ONE ×2 (07:54→10:44)
[2018-02-08] MEDS ORDERED: Lidocaine 2.5%/Prilocain 2.5%* 5 GM TUBE ONE (07:55)
[2018-02-08] MEDS ORDERED: Propofol* 10 MG/ML 20 ML BTL IV PUSH ONE (10:31)
[2018-02-08] MEDS ORDERED: Lidocaine 2% PF * 5 ML VIAL ONE (10:31)
[2018-02-08] MEDS ORDERED: Midazolam* 1 MG/ML 2 ML VIAL (2 MG) ONE (10:31)
[2018-02-08] MEDS ORDERED: fentaNYL* 50 MCG/ML 2 ML VIAL (100 MCG VIAL) ONE (10:31)
[2018-02-08] MEDS ORDERED: Dexamethasone IV* 4 MG/ML 1 ML (4 MG) ONE (10:43)
[2018-02-08] MEDS ORDERED: Heparin VIAL(*) 5000 UNITS/ML VIAL (FIVE THOUSAND) ONE (10:43)
[2018-02-08] MEDS ORDERED: Ondansetron INJ* 2 MG/ML VIAL ONE (10:43)
[2018-02-08] MEDS ORDERED: Scopolamine 1.5 mg* PATCH ONE (10:44)
[2018-02-08] MEDS ORDERED: ceFAZolin 2 GM PREMIX in ORs 2 GM/50 ML BAG IVPB ONE (10:44)
--- NOTE | 2018-02-08 10:44 | RAD ---
HISTORY: Breast cancer. Lymphoscintigraphy of the breast for the purposes of sentinel node identification. COMPARISONS: MRI dated January 10, 2018, mammogram dated January 07, 2018 TECHNIQUE: Previous imaging was reviewed. The procedure was explained to the patient who indicated that she understood. Written and verbal informed consent was obtained, with an opportunity to ask and answer questions. The right breast was marked. A timeout was performed. The patient was prepped and draped in the usual sterile fashion. Technetium 99m sulfur colloid was administered in a subdermal fashion in 4 divided aliquots in a 180 degree arc along the areolar margin of the RIGHT breast, centered on the position of the primary breast lesion. Cine and planar imaging was performed. The first appearing axillary node was identified with the overlying skin marked. The left breast was marked. A timeout was performed. The patient was prepped and draped in the usual sterile fashion. Technetium 99m sulfur colloid was administered in a subdermal fashion in 4 divided aliquots in a 180 degree arc along the areolar margin of the left breast along the arch of the left upper outer quadrant of the requesting physician. Cine and planar imaging was performed. The first appearing axillary node was identified with the overlying skin marked. DOSE: Right: Technetium 99m sulfur colloid, 0.312 millicuries, injected at 8:35 AM Left: Technetium 99m sulfur colloid, 0.302 millicuries, injected at 9:47 AM FINDINGS: Synchronous uptake is noted within 2 right axillary lymph nodes. The sites of uptake were marked on the overlying skin. Uptake is noted with a left axillary lymph node. The site of uptake is marked on the overlying skin. OTHER: None IMPRESSION: 1. TECHNICALLY SUCCESSFUL, UNCOMPLICATED, LYMPHOSCINTIGRAPHY OF THE RIGHT BREAST FOR THE PURPOSES OF SENTINEL NODE LOCALIZATION. 2. TECHNICALLY SUCCESSFUL, UNCOMPLICATED, LYMPHOSCINTIGRAPHY OF THE LEFT BREAST FOR THE PURPOSES OF SENTINEL NODE LOCALIZATION.
[2018-02-08] MEDS ORDERED: Methylene Blue 0.5 %* 50 MG/10 ML AMP IV ONE (11:17)
[2018-02-08] MEDS ORDERED: Gentamicin ADULT (*) 40 MG/ML VIAL ONE ×3 (11:17→15:26)
[2018-02-08] MEDS ORDERED: Bupivacaine 0.5% SDV PF* 30ML VIAL ONE (11:18)
[2018-02-08] MEDS ORDERED: Bacitracin IV* 50,000 UNITS INJ ONE ×2 (11:18→15:27)
[2018-02-08] MEDS ORDERED: ceFAZolin 1 GM VIAL(*) ONE ×3 (11:18→15:26)
[2018-02-08] MEDS ORDERED: Bupivacaine 0.25% SDV* 30 ML ONE (11:18)
[2018-02-08] MEDS ORDERED: Acetaminophen IV 1GM/100ML * 100 ML ONE (11:45)
[2018-02-08] MEDS ORDERED: Povidone Iodine 5% OPTH* 30 ML BTL ONE (12:17)
[2018-02-08] MEDS ORDERED: KETAMINE HCL* 50 MG/ML 10 ML VIAL ONE (12:22)
[2018-02-08] MEDS ORDERED: EPHEDrine (Pressors)* 50 MG/ML VIAL ONE ×2 (12:26→12:27)
[2018-02-08] MEDS ORDERED: Naloxone* 0.4 MG/ML 1 ML VIAL IV PRN (13:47)
[2018-02-08] MEDS ORDERED: oxyCODONE TAB* 5 MG TAB PO PRN (13:47)
[2018-02-08] MEDS ORDERED: DiMENhydriNATE IV* 50 MG/ML VIAL IV PUSH PRN (13:47)
[2018-02-08] MEDS ORDERED: Rocuronium* 10 MG/ML VIAL ONE (13:54)
--- NOTE | 2018-02-08 15:14 | BRIEFOPN ---
Brief Operative Note - Surgery Procedures: Procedures OPEN BIOPSY OF BREAST (04/15/99) 02/08/18 Op Note Pre-op dx: right breast cancer Post-op dx: same Procedure: bilateral mastectomies and bilateral sentinel lymph node biopsies Surgeon: Francisco asst: Syed Anesth: general Complications: none SCDs on during surgery Abx: given pre-op Pt tolerated procedure well and was transferred to Dr. Mills in a stable condition. CLFoster
[2018-02-08] MEDS ORDERED: oxyCODONE/Acetamin 5/325 MG* TAB PO PRN (15:17)
[2018-02-08] MEDS ORDERED: Neostigmine Methylsulfate* 1 MG/ML 10 ML VIAL (1 mg/ml) ONE (16:14)
[2018-02-08] MEDS ORDERED: ceFAZolin 1 GM in Dextrose (*) 2 GM/100 ML BAG IVPB ONE (16:16)
[2018-02-08] MEDS ORDERED: HYDROmorphone INJ1* 1 MG/ML SYRINGE ONE ×2 (16:28→17:24)
[2018-02-08] MEDS ORDERED: Glycopyrrolate IV* 0.2 MG/ML 1 ML VIAL ONE (16:30)
[2018-02-08] MEDS ORDERED: Ketorolac INJ* 30 MG/ML 1 ML VIAL ONE (16:44)
[2018-02-08] MEDS: HYDROmorphone INJ1* 1 MG/ML SYRINGE IV PRN ×2 (17:24→17:55)
[2018-02-08] MEDS ORDERED: oxyCODONE/Acetamin 5/325 MG* TAB ONE (17:53)
[2018-02-08] MEDS: oxyCODONE/Acetamin 5/325 MG* TAB PO PRN ×2 (17:54→22:28)
[2018-02-08] MEDS ORDERED: Ondansetron INJ* 2 MG/ML VIAL IV PRN (22:25)
[2018-02-09] MEDS ORDERED: HYDROmorphone INJ1* 1 MG/ML SYRINGE IV PRN (00:12)
[2018-02-09] MEDS: Docusate CAP* 100 MG PO SCH ×3 (00:58→21:30)
[2018-02-09] MEDS: oxyCODONE/Acetamin 5/325 MG* TAB PO PRN ×4 (04:33→21:30)
--- NOTE | 2018-02-09 05:24 | OP ---
CC: [facility]; [facility]; Dr. Jp Tsai OPERATIVE SUMMARY: DATE OF OPERATION: 02/08/18. DATE OF : 71. SURGEON: Uma Singh M.D. ICE SCRAPER: Dr. Lynch. PRE-OP DIAGNOSIS: Right breast cancer. POST-OP DIAGNOSIS: Right breast cancer. OPERATIVE PROCEDURE: Bilateral mastectomies and bilateral sentinel lymph node biopsies. INDICATIONS: Ms. Mondragon is a 42-year-old woman, recently diagnosed with breast cancer, who has opted to have bilateral mastectomies. Because of that, she is having bilateral sentinel lymph node biopsi es as well. She opted for reconstruction, so Dr. Mills was involved in decision making process. On the morning of surgery, she underwent sentinel lymph node localization on both sides without diff iculty. DESCRIPTION OF PROCEDURE: She was then brought to the operating room, placed on the OR table in a brantley pine position and given general anesthesia. The chest wall and both axillae were prepped and draped in the usual sterile fashion. Attention was turned first to the left side. Here, an incision was ma de along the line that had been marked preoperatively by Dr. Mills in the superior breast. Subcu taneous tissue was then divided with electrocautery to create a flap medially to the sternum, superio rly to the clavicle, and laterally to the latissimus dorsi muscle. Then, an incision was made in the inferior breast creating an ellipse around the nipple-areolar complex and again subcutaneous tissue w as divided with electrocautery medially to the sternum, inferiorly to the rectus muscle, and laterall y to the latissimus dorsi muscle. The breast was then elevated off the chest wall using electrocaute ry. Once the axilla was reached, the search was made for the sentinel lymph node and this was identi fied without difficulty and noted to have very elevated counts. It was dissected free from surroundi ng tissue using blunt and sharp dissection and using clips to control small lymphatic and blood vesse ls that approached the gland. Its ex vivo counts were somewhat less than its in situ counts, but the axillary bed counts were very low, so it was felt that this was the only sentinel node. The breast and the sentinel node were handed off as a specimen. Then, the left side was turned over to Dr. Nolvia arceo for reconstruction. Attention was then turned to the right side where again an incision was made in the superior breast a nd flaps were developed with electrocautery medially to the sternum, superiorly to the clavicle, and laterally to the latissimus dorsi muscle. Then, an incision was made in the inferior breast creating an ellipse around the nipple-areolar complex and again subcutaneous tissue was divided with electroca utery medially to the sternum, inferiorly to the rectus muscle, and laterally to the latissimus dorsi muscle. The breast was then elevated off the chest wall using electrocautery. Once the axilla was reached, the search was made for the sentinel node. Three separate sentinel nodes were identified, e ach with elevated counts that were comparable in situ to the ex vivo counts. Once the 3 nodes were r emoved, the axillary bed counts were 10. Then, each of these specimens was handed off. The wound wa s irrigated with saline and hemostasis was assured and then again the case was turned over to Dr. Debra almonte. The patient tolerated this portion of the case well and was transferred to Dr. Mills's c are in a stable condition. [id number]/[facility] #: [id number]
--- NOTE | 2018-02-09 07:08 | PN ---
Progress Note - Progress Note Date of Service: 02/09/18 Note: Surgery MsYobani Mondragon reports she has difficulty when the pain comes on, but is able to manage it with pain meds, requiring IV meds. Vital Signs 02/08/18 02/08/18 02/08/18 10:44 17:05 17:06 Temperature 97.5 F 97.0 F Pulse Rate 71 117 105 Respiratory 14 Rate Blood Pressure 114/81 139/82 (mmHg) O2 Sat by Pulse 98 97 98 Oximetry 02/08/18 02/08/18 02/08/18 17:10 17:15 17:20 Temperature Pulse Rate 120 100 107 Respiratory 20 22 19 Rate Blood Pressure 124/77 135/76 134/81 (mmHg) O2 Sat by Pulse 97 91 98 Oximetry 02/08/18 02/08/18 02/08/18 17:24 17:25 17:30 Temperature Pulse Rate 89 67 Respiratory 21 14 16 Rate Blood Pressure 123/80 122/67 (mmHg) O2 Sat by Pulse 96 96 Oximetry 02/08/18 02/08/18 02/08/18 17:35 17:41 17:42 Temperature Pulse Rate 93 Respiratory 20 Rate Blood Pressure 135/78 (mmHg) O2 Sat by Pulse 97 97 97 Oximetry 02/08/18 02/08/18 02/08/18 17:45 17:54 17:55 Temperature Pulse Rate 69 Respiratory 18 22 16 Rate Blood Pressure 130/74 (mmHg) O2 Sat by Pulse 98 Oximetry 02/08/18 02/08/18 02/08/18 18:00 18:01 18:30 Temperature 97.4 F Pulse Rate 103 96 62 Respiratory 15 16 16 Rate Blood Pressure 135/84 115/64 (mmHg) O2 Sat by Pulse 97 97 93 Oximetry 02/08/18 02/08/18 02/08/18 18:45 18:59 19:34 Temperature 97.4 F 97.5 F Pulse Rate 62 72 Respiratory 16 18 18 Rate Blood Pressure 115/64 125/78 (mmHg) O2 Sat by Pulse 93 95 Oximetry 02/08/18 02/08/18 02/08/18 20:38 22:28 22:52 Temperature 98.0 F 97.4 F Pulse Rate 81 74 Respiratory 17 16 17 Rate Blood Pressure 111/60 104/63 (mmHg) O2 Sat by Pulse 97 98 Oximetry 11/05/2702/09/18 02/09/18 23:52 00:29 01:15 Temperature 97.7 F Pulse Rate 78 Respiratory 16 16 16 Rate Blood Pressure 103/61 (mmHg) O2 Sat by Pulse 96 Oximetry 02/09/18 02/09/18 03:40 04:33 Temperature 97.7 F Pulse Rate 89 Respiratory 16 18 Rate Blood Pressure 101/49 (mmHg) O2 Sat by Pulse 98 Oximetry Mastectomy sites: vacuum assisted closure in place; no visible signs infection. JPs: serosanguinous Intake & Output 02/08/18 02/09/18 02/09/18 22:59 06:59 14:59 Intake Total 3400 360 Output Total 680 755 Balance 2720 -395 Intake: IV Fluids 3000 LR 950 NS 50ML, Cefazolin 2G 50 lr 2000 Oral 400 360 Output: DARSHANA #1 70 65 DARSHANA #2 110 90 Charles 450 600 Estimated Blood Loss 50 Other: Estimated Stool Amount Large A/P: POD#1 s/p bilateral mastectomies with reconstruction; slow progress; may not go home today.
[2018-02-10] MEDS: oxyCODONE/Acetamin 5/325 MG* TAB PO PRN ×2 (01:20→06:28)
--- NOTE | 2018-02-10 08:52 | PN ---
Progress Note - Progress Note Date of Service: 02/10/18 SOAP: Subjective: Doing well-minimal pain Tolerating po Ready to go home Objective: Temp Pulse Resp BP Pulse Ox 98.4 F 61 16 95/64 99 02/10/18 04:22 02/10/18 04:22 02/10/18 06:28 02/10/18 04:22 02/10/18 04:22 Intake & Output 02/08/18 02/09/18 02/10/18 02/11/18 07:59 07:59 06:59 06:59 Intake Total Output Total Balance Weight Intake: IV Fluids LR NS 50ML, Cefazolin 2G lr Oral Output: DARSHANA #1 DARSHANA #2 Urine Charles Estimated Blood Loss Other: Estimated Stool Amount PEX: Comfortable Wound VAC's in place Lungs clear Assessment: S/P mastectomies with reconstruction Doing well Plan: D/C home today Wound VAC She has pain meds Outpatient Plastic and Surgery follow up
[2018-02-10] MEDS: Docusate CAP* 100 MG PO SCH (09:13)
[2018-02-10 09:26] VITALS: BP 100/66
== END 2018-02-10 09:23 | disposition home or self-care (01) | DRG 362 ==
LOC: AA 07:27 → SSU 18:38
PROVIDERS: ADMIT Surgery; ATTEND Surgery
PROC: 0HRV0JZ Replacement of Bilateral Breast with Synthetic Substitute, Open Approach (ICD-10-PCS; principal; 2018-02-08)
PROC: 07B60ZX Excision of Left Axillary Lymphatic, Open Approach, Diagnostic (ICD-10-PCS; 2018-02-08)
PROC: 07B50ZX Excision of Right Axillary Lymphatic, Open Approach, Diagnostic (ICD-10-PCS; 2018-02-08)
DX: C50.211 Malignant neoplasm of upper-inner quadrant of right female breast (principal); G47.00 Insomnia, unspecified; Z79.899 Other long term (current) drug therapy; Z80.3 Family history of malignant neoplasm of breast
CPT/HCPCS: 36415; 78195; 81025; 86850; 86900; 86901; A9270-GY; A9541; J0690; J1100; J1170; J1580; J1644; J1885; J2250; J2270; J2405; J2704; J2710; J3010

== ENCOUNTER → 2019-02-18 05:58 | Day surgery (SDC) | payer BC ==
[~2019-02-18 05:58] MED LIST changes: +Acetaminophen / Codeine* #3 (300 MG/30 MG) TAB ONE; +Acetaminophen TAB* 325 MG ONE; +Acetaminophen TAB* 325 MG PO ONE; +Bacitracin INJECTION* 50,000 UNITS ONE; -Buffered Lidocaine 0.9% SYRIN* 5 ML/SYR SYRINGE INTRADERM ONE; +Buffered Lidocaine 1% SYRIN* 1 ML/SYRINGE INTRADERM ONE; +Dexamethasone IV* 4 MG/ML 1 ML (4 MG) ONE; +EPHEDrine (Pressors)* 50 MG/ML VIAL ONE; +Famotidine IV* 10 MG/ML 2 ML (20 mg) IV ONE; +Famotidine IV* 10 MG/ML 2 ML (20 mg) ONE; +Gabapentin CAP(*) 400 MG PO ONE; +Gentamicin ADULT (*) 40 MG/ML VIAL (2 ML VIAL = 80 MG) ONE; +Heparin VIAL(*) 5000 UNITS/ML VIAL (FIVE THOUSAND) ONE; +Lactated Ringers 1000 ML Bag* 1,000 ML IV SCH; +Midazolam* 1 MG/ML 2 ML VIAL (2 MG) ONE; +Ondansetron INJ* 2 MG/ML VIAL ONE; +Phenylephrine 10 MG/ML VIAL* 1 ML VIAL ONE; +Phenylephrine 40 MCG/ML SYRINGE ONE; +Povidone Iodine 5% OPTH* 30 ML BTL ONE; +Scopolamine 1.5 mg* PATCH ONE; +ceFAZolin VIAL(*) VIAL ONE; +fentaNYL* 50 MCG/ML 2 ML VIAL (100 MCG VIAL) ONE
[2019-02-18 11:51] VITALS: BP 123/75
== END | disposition home or self-care (01) ==
LOC: OR 05:58
PROVIDERS: ATTEND Plastic Surgery
DX: Z90.13 Acquired absence of bilateral breasts and nipples (principal); Z85.3 Personal history of malignant neoplasm of breast; Z80.3 Family history of malignant neoplasm of breast
CPT/HCPCS: 81025; A9270-GY; C1789; J0690; J1100; J1580; J1644; J2250; J2405; J3010